=== PATIENT | female | born 1995 | race African-American/Black ===

== ENCOUNTER 2016-08-01 16:21 | Emergency (ER) | payer OTHER ==
[~2016-08-01] VITALS: Ht 172.7 cm; Wt 57.8 kg
[2016-08-01 16:24] VITALS: TEMP 37; Ht 172.7 cm; Wt 57.8 kg
[2016-08-01] MEDS ORDERED: METH4PAK PO (16:40)
--- NOTE | 2016-08-01 16:43 | EMERGENCY ROOM VISIT NOTE ---
History Report prepared by [place]: Edy Marshall Under the Supervision of: Pilo BolañosO. First contact with patient: 16:28 Chief Complaint: RASH Stated Complaint: REALLY BAD HIVES ALL OVER BODY History of Present Illness The patient is a 21 year old female who presents to the Emergency Room with complaints of a worsening rash beginning 3 days ago. She notes she woke up with hives on her arms, and it has spread to her legs. She notes the rash itches. She denies any current medications, new soaps, new detergents, or any new recent environmental exposures. The patient reports having this rash before, and her PCP noted it was a rash related to stress, but the patient denies any recent stress as she is taking the semester off from school. She notes she was put on steroids the last time she had this rash which helped to alleviate her symptoms. The patient denies any fever, chills, difficulty swallowing, shortness of breath, or abdominal pain. She also denies any chance of . Source of History: patient Onset: 3 days ago Position: other (global) Quality: other (rash) Timing: worsening Associated Symptoms: No SOB, No abdominal pain, No chest pain, No chills, No fevers Note: The patient denies difficulty swallowing. Review of Systems See HPI for pertinent positives & negatives. A total of 10 systems reviewed and were otherwise negative. Past Medical & Surgical History of rash Old medical records were attempted to be reviewed but there are no old records at this hospital. Nurse's notes were reviewed and I agree with. Family History No pertinent family history Social History Smoking Status: Never Smoker Alcohol Use: none Drug Use: none Marital Status: in relationship Housing Status: lives with significant other Occupation Status: employed Current/Historical Medications Scheduled Methylprednisolone (Medrol Dosepak), 0 PO DAILY Scheduled PRN Loratadine (Allergy), 20 MG PO BID PRN for ALLERGIC REACTION Allergies Coded Allergies: No Known Allergies (Unverified , 07/08/15) Physical Exam Vital Signs Date Time Temp Pulse Resp B/P Pulse Ox O2 Delivery O2 Flow Rate FiO2 08/01/16 17:09 88 18 114/80 100 08/01/16 16:24 37.0 96 20 126/89 99 Room Air Physical Exam General: Non ill-appearing young female in no acute distress. HEENT: Normal cephalic atraumatic. Pupils are equal round and reactive to light. Sclera non-injected. Extraocular movements are intact. Oropharynx is pink with moist mucous membranes; without lesion or swelling. No swelling of the mouth lips or tongue. Neck: Supple with a midline trachea. No meningeal signs or stiffness, no JVD or bruits. No Stridor. Chest: Clear to auscultation bilaterally. No wheezes or rhonchi. No increased work of breathing. Heart: regular rate and rhythm. Abdomen: Soft nontender, nondistended without rebound guarding or rigidity. Extremities: No cyanosis clubbing or edema. No calf tenderness or assymetry Spine/Back. Non tender to palpation. No CVA tenderness Skin: Fine red raised lesions mostly on abdomen and back and arms. Does not involve the palms or soles. Neurologic exam: Cranial nerves two through 12 are intact. Motor and sensation are intact and symmetrical throughout. Medical Decision & Procedures Medications Administered Medications (Trade) Dose Ordered Sig/Yuki Route Start Time Stop Time Status Last Admin Dose Admin Prednisone (PredniSONE TAB) 60 mg NOW STAT PO 08/01/16 16:38 08/01/16 16:39 DC 08/01/16 16:45 60 MG ED Course 1630: Past medical records reviewed. The patient was evaluated in room D7, and a complete history and physical examination were performed. 1638: Ordered Prednisone 60 mg PO. 1645: Upon reevaluation, the patient is doing well. I discussed the results and treatment plan with the patient. She verbalized agreement of the treatment plan. The patient was discharged home. Medical Decision Differentials include allergic reaction, viral illness, scabies, and dermatitis, . This patient comes in after having an itchy rash this been going on for several days now. She's had this before and got better with prednisone. She describes this as hives however it does not look like hives- it's small red spots throughout her abdomen and back. He may be some sort of allergic dermatitis but is not hives. It does not involve the wrist or hands. Scabies would be in the differential but I think that is less likely. It does not involve the mucous membranes. She is afebrile and nontoxic. It may be some sort of contact dermatitis. She was started on prednisone with a Medrol Dosepak taper and a dose of prednisone here. Additionally, she can use Benadryl 25-50 every 8 hours. She was warned that this can make her drowsy -do not take before drinking, driving, working. I encouraged her to follow up with her doctor when she gets back home in [place]. Again she's had no exposure to scabies but I told her she may need to get rechecked if it does not get better. She was happy with plan and discharged to home. Impression Primary Impression: Rash Additional Impression: Pruritus Scribe Attestation The scribe's documentation has been prepared under my direction and personally reviewed by me in its entirety. I confirm that the note above accurately reflects all work, treatment, procedures, and medical decision making performed by me. Departure Information Dispostion Home / Self-Care Prescriptions Methylprednisolone (MEDROL DOSEPAK) 4 Mg Corey 0 PO DAILY, #1 PKT Prov: Edy Carter M.D. 08/01/16 Referrals [facility] (PCP) Patient Instructions My [facility] Additional Instructions Rest. Drink plenty of fluids. Use Medrol Dosepak as directedsteroids. May use Benadryl 25-50 mg every 8 hours if needed. Benadryl may make you drowsy do not take for drinking, driving, working. Follow-up with your doctor when he home this week. He may need further evaluation or treatment. Problem Qualifiers
[2016-08-01] MEDS ORDERED: LORA10TA44 PO (16:51)
[2016-08-01 17:09] VITALS: BP 114/80; PULSE 88; O2SAT 100
== END 2016-08-01 17:10 | disposition home or self-care (01) ==
LOC: C.EDB 16:23 → C.EDD 17:10
DX: R21 Rash and other nonspecific skin eruption (principal); L29.9 Pruritus, unspecified